=== PATIENT | female | born 1995 ===

== ENCOUNTER 2018-08-14 20:18 | Emergency (ER) | payer OTHER ==
[2018-08-14 20:31] VITALS: BP 123/67
--- NOTE | 2018-08-14 21:07 | UC ---
Skin Complaint HPI - HPI Summary HPI Summary: About 2 days ago patient noticed some discomfort in her in the middle of her back. Today noticed some red lumps over the area of tenderness. No fever. No nausea. Denies any trauma to the area. - History of Current Complaint Chief Complaint: UCSkin Time Seen by Provider: 08/14/18 20:20 Stated Complaint: RASH Hx Obtained From: Patient, Family/[employer] Sales Representative - BOYFRIEND Hx Last Menstrual Period: 07/24/18 Onset/Duration: Gradual Onset, Lasting Days, Still Present Timing: Constant Onset Severity: Mild Current Severity: Mild Pain Intensity: 1 Pain Scale Used: 0-10 Numeric Location: Discrete - MID BACK Character: Redness, Raised, Painful Aggravating Factor(s): Touch Alleviating Factor(s): Nothing Associated Signs & Symptoms: Positive: Tenderness - Allergy/Home Medications Allergies/Adverse Reactions: Allergies Allergy/AdvReac Type Severity Reaction Status Date / Time No Known Allergies Allergy Verified 08/14/18 20:25 Home Medications: Home Medications Norethindrone-E.estradiol-Iron [Junel Fe 1 mg-20 Mcg Tablet] 1 tab PO DAILY [History Confirmed 08/14/18] PMH/Surg Hx/FS Hx/Imm Hx Previously Healthy: Yes - Surgical History Surgical History: None - Family History Known Family History: Positive: Non-Contributory - Social History Alcohol Use: Weekly Alcohol Amount: 5 drinks today Substance Use Type: None Smoking Status (MU): Never Smoked Tobacco Review of Systems All Other Systems Reviewed And Are Negative: Yes Constitutional: Positive: Negative Skin: Positive: Other - ERYTHEMA BACK Respiratory: Positive: Negative Cardiovascular: Positive: Negative Gastrointestinal: Positive: Negative Musculoskeletal: Negative: Decreased ROM, Myalgia Physical Exam Triage Information Reviewed: Yes Appearance: Well-Appearing, No Pain Distress, Well-Nourished Vital Signs: Initial Vital Signs Temp 99.7 F 08/14/18 20:26 Pulse 89 08/14/18 20:26 Resp 18 08/14/18 20:26 BP 123/67 08/14/18 20:26 Pulse Ox 99 08/14/18 20:26 Vital Signs Reviewed: Yes Eyes: Positive: Conjunctiva Clear ENT: Positive: Hearing grossly normal Neck: Positive: Supple Respiratory: Positive: No respiratory distress, No accessory muscle use Cardiovascular: Positive: Pulses Normal Abdomen Description: Positive: Soft Musculoskeletal: Positive: No Edema Neurological: Positive: Alert Psychological: Positive: Age Appropriate Behavior Skin: Positive: Other - 1.5CM AREA OF INDURATION, ERYTHEMA AND TENDERNESS MID- LINE BACK OVERLYING SPINOUS PROCESSES X 3. NO FLUCTUANCE. NO DRAINAGE. Course/Dx - Diagnoses Provider Diagnosis: Cellulitis of mid back region Discharge - Sign-Out/Discharge Documenting (check all that apply): Patient Departure All imaging exams completed and their final reports reviewed: No Studies - Discharge Plan Condition: Stable Disposition: HOME Prescriptions: Cephalexin CAP* [Keflex 500 CAP*] 500 mg PO BID #13 cap Patient Education Materials: Cellulitis (ED) Referrals: [facility] [Provider Group] - If Needed Additional Instructions: TAKE THE ANTIBIOTICS TWICE DAILY FOR 7 DAYS. APPLY THIN LAYER OF OTC ANTIBIOTIC OINTMENT 2 TIMES DAILY. AVOID ANY NEOMYCIN CONTAINING PRODUCTS. SEEK REEVALUATION IF YOU ARE NOT IMPROVING OVER THE NEXT FEW DAYS WITH THIS TREATMENT. BE AWARE THAT YOUR ORAL CONTRACEPTIVE PILL MAY BE LESS EFFECTIVE WHILE YOU'RE TAKING ANTIBIOTICS. USE BACKUP BARRIER METHOD FOR CONTRACEPTION FOR THE REMAINDER OF THIS CYCLE AND YOUR NEXT CYCLE TO HELP PREVENT . - Billing Disposition and Condition Condition: STABLE Disposition: Home
[2018-08-14] MEDS ORDERED: Cephalexin CAP* 500 MG PO ONE (21:09)
== END 2018-08-14 21:22 | disposition home or self-care (01) ==
LOC: UCEAST 20:18
DX: L03.312 Cellulitis of back [any part except buttock and flank] (principal)
CPT/HCPCS: 99202; A9270-GY; G0463